=== PATIENT | male | born 1990 | race Caucasian/White ===

== ENCOUNTER 2023-09-29 23:51 | Inpatient (IN) | payer OTHER, SELFPAY ==
[2023-09-29 18:16] VITALS: BP 146/100
[2023-09-29 18:32] VITALS: BP 130/94
--- NOTE | 2023-09-29 18:42 | ED.GENMED ---
History of Present Illness
<Elizabeth Hardy CASHIER AND WAITER/WAITRESS - Last Filed: 09/30/23 03:23>
General
Chief Complaint: Alcohol Problem
Source: patient and family (Uncle at bedside)
Exam Limitations: none
Time Seen by Provider: 09/29/23 18:40
Nursing documentation reviewed up to this point in time: agreed with
Travel History
Have you had any contact with someone who has COVID-19?: No
Do you have any symptoms of coronavirus? Fever > 100 degrees, chills, cough, shortness of breath, sore throat, loss of taste or smell, muscle aches, or headache?: No
History of Present Illness
History of Present Illness:
33 yo male with h/o alcohol use disorder, has been in rehab several times in the past presents stating for past 2 weeks has been drinking daily 'whatever I can get my hands on,' 'any clear booze' usually Vodka, drank a 5th of Vodka throughout the
day today. Finished it at 4 p.m. Uncle at bedside. Pt states Uncle was asked to stay at house with pt as his parents are away and pt states 'I am manipulative and untrustworthy so they asked him to stay with me.'
Pt states yesterday he vomited coffee ground material 3 times and last time there was blood in it
Earlier today he vomited and 'it was red.'
He states he's had black stools 4-5 times in past 2 days.
Denies CP, SOB, feels 'burning pain' in stomach.
Pt states he felt tremors this a.m. but drinking the Vodka throughout the day helped. He denies symptoms of DT's now.
Past History
<Elizabeth Hardy CASHIER AND WAITER/WAITRESS - Last Filed: 09/30/23 03:23>
Past History
ED Past Medical History: Other (Anxiety, depression alcohol use disorder, )
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
Social History
Tobacco: Non-smoker
Alcohol: Chronic alcoholic
Drug: None
Personal: Single
Living: with family
Employment: Employed
<Geo Simon DO - Last Filed: 09/29/23 23:00>
Past History
Patient has exhibited threatening behavior?: Yes
Date of threatening behavior? (updated with each occurrence): 09/29/23
Review of Systems
<Elizabeth Hardy, CASHIER AND WAITER/WAITRESS - Last Filed: 09/30/23 03:23>
Review of Systems
Allergies reviewed?: Yes
All Other Systems: ROS reviewed and negative except as documented in HPI and ROS
Constitutional: Denies fever or fatigue
EENT: Denies sore throat
Respiratory: Denies trouble breathing
Cardiac: Denies chest pain
ABD/GI: Reports nausea, vomiting and black stools; Denies abdominal pain
: Denies dysuria, frequency or difficulty voiding
Musculoskeletal: Reports no symptoms
Skin: Reports no symptoms
Neurological: Reports no symptoms
Phy Exam
<Elizabeth Hardy, CASHIER AND WAITER/WAITRESS - Last Filed: 09/30/23 03:23>
Physical Exam
Physical Exam:
GENERAL: No acute distress. A&Ox3.
CONSTITUTIONAL: Afebrile.
EYES: PERRL, conjunctivae normal
Neck: Supple
ENMT: moist mucus membranes, Pharynx nl
RESPIRATORY: Regular respirations, nonlabored, lungs clear.
CARDIOVASCULAR: Regular rate and rhythm, no murmurs, no rubs.
GI: Soft, nontender, normal BS
MUSCULOSKELETAL: Moves with ease. Well perfused.
SKIN: Warm, dry, pink
PSYCH: Normal mood and affect. Well kept, interactive and appropriate
NEUROLOGIC: Awake, alert and oriented. No focal neurological deficits, no tremors
Scores
<Elizabeth Hardy, CASHIER AND WAITER/WAITRESS - Last Filed: 09/30/23 03:23>
Withdrawal Assessment of Alcohol
Withdrawal Assessment Completed?: Yes
Nausea and Vomiting: Mild nausea with no vomiting
Tactile Disturbances: None
Tremor: No tremor
Auditory Disturbances: Not present
Paroxysmal Sweats: No sweat visible
Visual Disturbances: Not present
Anxiety: Mild anxiety
Headache, Fullness in Head: Not present
Agitation: Normal activity
Orientation and clouding of sensorium: Oriented and can do serial additions
Total CIWA Score: 2
Alcohol Withdrawal Medication Recommendation: Equal to MSAS Score 0-4. Monitor & re-assess q2hrs, NO MEDICATION NEEDED
Course
<Elizabeth Hardy, CASHIER AND WAITER/WAITRESS - Last Filed: 09/30/23 03:23>
Orders/Labs/Results
Orders:
Orders
09/29/23 18:44
Alcohol Urgent
Complete Blood Count/With Diff Urgent
Comprehensive Metabolic Panel Urgent
Magnesium Urgent
Phosphorus Urgent
Prothrombin Time Urgent
09/29/23 19:00
0.9% Sodium Chloride 1000 ml [Nss] 1,000 ml Mvi, Adult [Multivitamin] 10 ml Thiamine Injection 100 mg IV 1,000 mls/hr
09/29/23 19:16
Pantoprazole [Protonix IV] 80 mg IV NOW STA
09/29/23 20:14
Lorazepam [Ativan] 1 mg IV NOW STA
09/29/23 21:03
Nicotine [Nicoderm Transdermal] 14 mg TRANSDERM NOW STA
09/29/23 21:06
Ondansetron Injectable [Zofran] 4 mg IV NOW STA
09/29/23 23:06
Fentanyl, Urine Urgent
Urine Drug Abuse Screen Urgent
Date Specimen was Collected: 09/29/23
Time Specimen was Collected: 18:42
09/29/23 23:25
Admit/Transfer Patient As Directed
Co-Sign Provider:
Level of Care: Inpatient admission
Assign to:: Medical/Surgical
Physician / Group: tequila
Diagnosis: rectal bleed
Reason for Hospitalization: rectal bleed
Expected length of stay greater than two midnights?: Yes
ELOS- Estimated Length of Stay in days: 3
I certify the patient meets the requirements for IP care: Yes
09/29/23 23:26
Code Status As Directed
Resuscitation Status: Full Code
09/30/23 00:29
0.9% Sodium Chloride 1000 ml [Nss] 1,000 ml IV 80 mls/hr
0.9% Sodium Chloride [Nss (Preservative Free)] See Protocol IV PRN PRN
FOLic ACID [Folvite] 1 mg 0.9% Sodium Chloride 50 ml [Nss] 50 ml IV DAILYPRN
Lorazepam [Ativan] 1 mg IV Q1HPRN PRN
Lorazepam [Ativan] 1 mg PO Q2HPRN PRN
Lorazepam [Ativan] 2 mg IV Q1HPRN PRN
09/30/23 00:29
Case Management Consult Once
Case Management Consult: Other
Comment: Substance abuse counseling
Consult Notification Routine
Specialty to Notify: Gastroenterology
DIETARY CONSULT Routine
Reason for Consult: Nutrition support, possible refeeding guidelines
GASTROINTESTINAL CONSULT Routine
Consulting Provider: Michelle Sutton
Was physician already notified: No
Reason for consult: rectal bleed
Urinalysis Routine
Urine Drug Abuse Screen Routine
Activity As Directed
Activity Level: As Tolerated
INT (Intravenous Needle Therapy) As Directed
Comment: Place 2 IV catheters of the largest bore possible until stable
MSAS SCORE As Directed
MSAS Score 0-4: Repeat MSAS every 2 hours until 0-4 for three consecutive assessments, then every 4 hours x 48
hours.
MSAS Score 5-7: For MILD withdrawl symptoms. Repeat MSAS and RASS every 2 hours
MSAS Score 8-11: For MODERATE withdrawal symptoms. Repeat MSAS and RASS every 1 hour. Consider ICU or IMU
level of care.
MSAS Score > 11: For SEVERE withdrawal symptoms. Repeat MSAS and RASS every 1 hour. Notify provider, consider
ICU level of care.
MSAS Additional Instructions: If no improvement or no decrease in score from severe to moderate within 12
hours, consult psychiatry
MSAS Notify Provider: Notify provider if patient requires more than 10 mg of Lorazepam in eight hour period.
Orthostatic Vital Signs As Directed
Orthostatic VS Frequency: Now
Comment: then every four hours for twenty-four hours
Venous Foot Pumps As Directed
Location: Bilateral feet
Vital Signs As Directed
Frequency: Per unit guidelines
DX Deep Vein Thrombosis Video Routine
09/30/23 00:58
Alcohol Urgent
B-Hydroxybutyrate Urgent
GGTP Urgent
Magnesium Urgent
PTT Urgent
09/30/23 Breakfast
NPO
Allow oral meds: Yes
Allow clear liquids: No
Basic Metabolic Panel IN AM
Complete Blood Count/No Diff IN AM
09/30/23 08:00
Buspirone [BuSPAR] 7.5 mg PO DAILY
Escitalopram Oxalate [Lexapro] 10 mg PO DAILY
FOLic ACID [Folvite] 1 mg PO DAILY
Nicotine [Nicoderm Transdermal] 14 mg TRANSDERM DAILY
Thiamine Injection 200 mg IV Q12
10/01/23 06:00
Basic Metabolic Panel IN AM
Complete Blood Count/No Diff IN AM
10/02/23 06:00
Basic Metabolic Panel IN AM
Complete Blood Count/No Diff IN AM
10/03/23 06:00
Basic Metabolic Panel IN AM
Complete Blood Count/No Diff IN AM
10/03/23 08:00
Thiamine HCl [Vitamin B1] 100 mg PO BID
10/04/23 06:00
Basic Metabolic Panel IN AM
Complete Blood Count/No Diff IN AM
Abnormal Lab Results
09/29/23 09/29/23
18:44 23:06
WBC 12.8 H 10^3/uL
(4.8-10.8)
Absolute Neuts (auto) 9.8 H 10^3/uL
(1.4-6.5)
Absolute Monos (auto) 1.0 H 10^3/uL
(0.1-0.6)
Neutrophils % 76.4 H %
(42.2-75.2)
Lymphocytes % 14.7 L %
(20.5-51.1)
Chloride 96 L mmol/L
(98-107)
BUN 24 H mg/dl
(9-20)
Glucose 115 H mg/dl
(70-99)
Calcium 10.3 H mg/dl
(8.4-10.2)
AST 63 H U/L
(17-59)
Total Protein 8.5 H g/dl
(6.3-8.2)
Albumin 5.3 H g/dl
(3.5-5.0)
U Benzodiazepines Scrn Positive H
(Negative)
U Marijuana (THC) Screen Positive H
(Negative)
09/29/23 18:44
09/29/23 18:44
Vital Signs
Initial and Last Documented VS:
Initial Vital Signs
Temp Pulse Resp BP Pulse Ox
99.5 F 138 20 146/100 94
09/29/23 18:16 09/29/23 18:16 09/29/23 18:16 09/29/23 18:16 09/29/23 18:16
Last Documented Vital Signs
Temp Pulse Resp BP Pulse Ox
98.8 F 103 17 130/82 98
09/30/23 00:47 09/30/23 00:47 09/30/23 00:47 09/30/23 00:47 09/30/23 00:47
Substation Operator Apprentice consulted with Physician
Substation Operator Apprentice consulted with physician?: Yes
Name of Physician Consulted: [facility]
<Geo Simon, DO - Last Filed: 09/29/23 23:00>
Orders/Labs/Results
Orders:
Orders
09/29/23 18:44
Alcohol Urgent
Complete Blood Count/With Diff Urgent
Comprehensive Metabolic Panel Urgent
Magnesium Urgent
Phosphorus Urgent
Prothrombin Time Urgent
09/29/23 19:00
0.9% Sodium Chloride 1000 ml [Nss] 1,000 ml Mvi, Adult [Multivitamin] 10 ml Thiamine Injection 100 mg IV 1,000 mls/hr
09/29/23 19:16
Pantoprazole [Protonix IV] 80 mg IV NOW STA
09/29/23 20:14
Lorazepam [Ativan] 1 mg IV NOW STA
09/29/23 21:03
Nicotine [Nicoderm Transdermal] 14 mg TRANSDERM NOW STA
09/29/23 21:06
Ondansetron Injectable [Zofran] 4 mg IV NOW STA
09/29/23 23:06
Fentanyl, Urine Urgent
Urine Drug Abuse Screen Urgent
Date Specimen was Collected: 09/29/23
Time Specimen was Collected: 18:42
09/29/23 23:25
Admit/Transfer Patient As Directed
Co-Sign Provider:
Level of Care: Inpatient admission
Assign to:: Medical/Surgical
Physician / Group: tequila
Diagnosis: rectal bleed
Reason for Hospitalization: rectal bleed
Expected length of stay greater than two midnights?: Yes
ELOS- Estimated Length of Stay in days: 3
I certify the patient meets the requirements for IP care: Yes
03/22/24 23:26
Code Status As Directed
Resuscitation Status: Full Code
09/30/23 00:29
0.9% Sodium Chloride 1000 ml [Nss] 1,000 ml IV 80 mls/hr
0.9% Sodium Chloride [Nss (Preservative Free)] See Protocol IV PRN PRN
FOLic ACID [Folvite] 1 mg 0.9% Sodium Chloride 50 ml [Nss] 50 ml IV DAILYPRN
Lorazepam [Ativan] 1 mg IV Q1HPRN PRN
Lorazepam [Ativan] 1 mg PO Q2HPRN PRN
Lorazepam [Ativan] 2 mg IV Q1HPRN PRN
09/30/23 00:29
Case Management Consult Once
Case Management Consult: Other
Comment: Substance abuse counseling
Consult Notification Routine
Specialty to Notify: Gastroenterology
DIETARY CONSULT Routine
Reason for Consult: Nutrition support, possible refeeding guidelines
GASTROINTESTINAL CONSULT Routine
Consulting Provider: Michelle Sutton
Was physician already notified: No
Reason for consult: rectal bleed
Urinalysis Routine
Urine Drug Abuse Screen Routine
Activity As Directed
Activity Level: As Tolerated
INT (Intravenous Needle Therapy) As Directed
Comment: Place 2 IV catheters of the largest bore possible until stable
MSAS SCORE As Directed
MSAS Score 0-4: Repeat MSAS every 2 hours until 0-4 for three consecutive assessments, then every 4 hours x 48
hours.
MSAS Score 5-7: For MILD withdrawl symptoms. Repeat MSAS and RASS every 2 hours
MSAS Score 8-11: For MODERATE withdrawal symptoms. Repeat MSAS and RASS every 1 hour. Consider ICU or IMU
level of care.
MSAS Score > 11: For SEVERE withdrawal symptoms. Repeat MSAS and RASS every 1 hour. Notify provider, consider
ICU level of care.
MSAS Additional Instructions: If no improvement or no decrease in score from severe to moderate within 12
hours, consult psychiatry
MSAS Notify Provider: Notify provider if patient requires more than 10 mg of Lorazepam in eight hour period.
Orthostatic Vital Signs As Directed
Orthostatic VS Frequency: Now
Comment: then every four hours for twenty-four hours
Venous Foot Pumps As Directed
Location: Bilateral feet
Vital Signs As Directed
Frequency: Per unit guidelines
DX Deep Vein Thrombosis Video Routine
09/30/23 00:58
Alcohol Urgent
B-Hydroxybutyrate Urgent
GGTP Urgent
Magnesium Urgent
PTT Urgent
09/30/23 Breakfast
NPO
Allow oral meds: Yes
Allow clear liquids: No
Basic Metabolic Panel IN AM
Complete Blood Count/No Diff IN AM
09/30/23 08:00
Buspirone [BuSPAR] 7.5 mg PO DAILY
Escitalopram Oxalate [Lexapro] 10 mg PO DAILY
FOLic ACID [Folvite] 1 mg PO DAILY
Nicotine [Nicoderm Transdermal] 14 mg TRANSDERM DAILY
Thiamine Injection 200 mg IV Q12
10/01/23 06:00
Basic Metabolic Panel IN AM
Complete Blood Count/No Diff IN AM
10/02/23 06:00
Basic Metabolic Panel IN AM
Complete Blood Count/No Diff IN AM
10/03/23 06:00
Basic Metabolic Panel IN AM
Complete Blood Count/No Diff IN AM
10/03/23 08:00
Thiamine HCl [Vitamin B1] 100 mg PO BID
10/04/23 06:00
Basic Metabolic Panel IN AM
Complete Blood Count/No Diff IN AM
Abnormal Lab Results
09/29/23 09/29/23
18:44 23:06
WBC 12.8 H 10^3/uL
(4.8-10.8)
Absolute Neuts (auto) 9.8 H 10^3/uL
(1.4-6.5)
Absolute Monos (auto) 1.0 H 10^3/uL
(0.1-0.6)
Neutrophils % 76.4 H %
(42.2-75.2)
Lymphocytes % 14.7 L %
(20.5-51.1)
Chloride 96 L mmol/L
(98-107)
BUN 24 H mg/dl
(9-20)
Glucose 115 H mg/dl
(70-99)
Calcium 10.3 H mg/dl
(8.4-10.2)
AST 63 H U/L
(17-59)
Total Protein 8.5 H g/dl
(6.3-8.2)
Albumin 5.3 H g/dl
(3.5-5.0)
U Benzodiazepines Scrn Positive H
(Negative)
U Marijuana (THC) Screen Positive H
(Negative)
09/29/23 18:44
09/29/23 18:44
Vital Signs
Initial and Last Documented VS:
Initial Vital Signs
Temp Pulse Resp BP Pulse Ox
99.5 F 138 20 146/100 94
09/29/23 18:16 09/29/23 18:16 09/29/23 18:16 09/29/23 18:16 09/29/23 18:16
Last Documented Vital Signs
Temp Pulse Resp BP Pulse Ox
98.8 F 103 17 130/82 98
09/30/23 00:47 09/30/23 00:47 09/30/23 00:47 09/30/23 00:47 09/30/23 00:47
Zamzamlt;Elizabeth Hardy, CASHIER AND WAITER/WAITRESS - Last Filed: 09/30/23 03:23>
MDM/Problems Addressed
MDM/Problems Addressed:
33 yo male with h/o alcohol use disorder, has been in rehab several times in the past presents stating for past 2 weeks has been drinking daily 'whatever I can get my hands on,' 'any clear booze' usually Vodka, drank a 5th of Vodka throughout the
day today. Finished it at 4 p.m. Uncle at bedside. Pt states Uncle was asked to stay at house with pt as his parents are away and pt states 'I am manipulative and untrustworthy so they asked him to stay with me.'
Pt states yesterday he vomited coffee ground material 3 times and last time there was blood in it
Earlier today he vomited and 'it was red.'
He states he's had black stools 4-5 times in past 2 days.
Denies CP, SOB, feels 'burning pain' in stomach.
Pt states he felt tremors this a.m. but drinking the Vodka throughout the day helped. He denies symptoms of DT's now.
Pt is alert, appears well physically, no DT symptoms.
09/29/2023 1918 PM
CBC: WBC 12.8 otherwise no clinically significant abnormality
CMP with no clinically significant abnormality. BUN 24, IV fluids running for mild dehydration
09/29/20232027 PM
Patient had an episode where he became verbally abusive to staff, cursing at everyone who entered the room, accusing staff of purposefully abusing him.
NOHEMY Ramos asked pt's uncle to step out, he spoke with him then went back to pt room and pt was verbally abusive to him, pt pulled out his IV cares Richard entered the room
Then became tearful and apologetic, Ativan given.
Richard from NOHEMY back in to speak with him.
09/29/20234 PM
Patient remains calm, NOHEMY Richard at bedside
09/29/20239 PM
No vomiting or BM since arrival.
SAVANNARES unable to find placement
Rectal exam: small amount stool heme flash positive
Plan: Admit: GI bleed, at risk for alcohol withdrawal
Chronic conditions affecting care: Other (alcohol use disorder)
Zamzamlt;Elizabeth Hardy, CASHIER AND WAITER/WAITRESS - Last Filed: 03/23/24 03:23>
*Critical Care Note
Total Time (30-74mins, 75-104mins- exclusive of procedures): Not Applicable
<Elizabeth Hardy CASHIER AND WAITER/WAITRESS - Last Filed: 09/30/23 03:23>
Patient Management
Social determinants of health affecting care: Strong social support
ED Attending Note
<Elizabeth Hardy CASHIER AND WAITER/WAITRESS - Last Filed: 09/30/23 03:23>
-
Portions of this chart may have been created with voice recognition software.� Occasional wrong word or��sound alike� substitutions may have occurred due to the inherent limitations of voice recognition software.
<Geo Simon DO - Last Filed: 09/29/23 23:00>
ED Attending Note
Patient seen and examined by attending physician: Yes
ED Attending Note:
I have reviewed and agree with history and treatment plan by Marjorie hardy. Patient is a 33-year-old male with alcohol intoxication and dependency, coffee-ground emesis concerning for upper GI bleed. Guaiac positive stool. Admit to hospitalist.
Patient was belligerent and yelling at nurses.
Discharge Plan
Departure
Patient Disposition: Admit
Date of Disposition: 09/29/23
Time of Disposition: 22:59
Admit to: Med/Surg
Presentation/result/management discussed w/ accepting MD/DO: Hospitalist
Condition: Fair
Discharge Problem:
Alcohol use disorder, Acute GI bleeding
Interventions
Interventions:
*Risk Screen - Suicide Last Done: 09/30/23 00:33
*General Assessment Last Done: 09/30/23 00:19
*Neglect/Abuse Screening Last Done: 09/30/23 00:19
ED- Fall Risk Assessment Last Done: 09/30/23 00:19
*ED COVID-19 Vaccine History Last Done: 09/30/23 00:33
*Nursing Disposition Last Done: 09/30/23 00:19
ED- Neurological Assessment Last Done: 09/29/23 18:58
ED-Psychological Assessment Last Done: 09/29/23 18:58
Discharge Date and Time
Discharge Date/Time: 09/30/23 00:19
[2023-09-29 18:56] LABS: % Basophils 0.5 % (0-2); % Eosinophils 0.2 % (0-6); % Immature Granulocytes 0.3 % (0-0.5); % Lymphocytes 14.7 % (20.5-51.1); % Monocytes 7.9 % (1.7-9.3); % Neutrophils 76.4 % (42.2-75.2); Absolute Basophils 0.1 10^3/uL (0-0.2); Absolute Lymphocytes 1.9 10^3/uL (1.2-3.4); Absolute Neutrophils 9.8 10^3/uL (1.4-6.5); Hematocrit 45.2 % (39.0-52.0); Hemoglobin 16.1 g/dL (13.0-18.0); Mean Corp Hgb Conc. 35.6 g/dL (33.0-37.0); Mean Corpuscular Hgb 30.4 pg (27.0-31.0); Mean Corpuscular Volume 85.3 fL (80.0-94.0); Mean Platelet Volume 10.2 fL (7.4-10.4); Nucleated Red Blood Cells % 0 % (-); Platelet Count 354 10^3/uL (130-400); Red Cell Dist. Width 13.4 % (11.5-14.5); White Blood Cell Count 12.8 10^3/uL (4.8-10.8)
[2023-09-29] MEDS: MULTIVITAMIN 1011 ML IV (19:17)
[2023-09-29] MEDS: MULTIVITAMIN 1011 MG IV (19:17)
[2023-09-29 19:18] VITALS: BP 127/86
[2023-09-29 19:19] LABS: ALT (SGPT) 33 U/L (0-50); AST (SGOT) 63 U/L (17-59); Albumin 5.3 g/dl (3.5-5.0); Alkaline Phosphatase 63 U/L (38-126); Blood Urea Nitrogen 24 mg/dl (9-20); Calcium 10.3 mg/dl (8.4-10.2); Carbon Dioxide 26 mmol/L (22-30); Chloride 96 mmol/L (98-107); Glucose 115 mg/dl (70-99); Phosphorus 4.3 mg/dl (2.5-4.5); Sodium 139 mmol/L (135-145); Total Bilirubin 0.7 mg/dl (0.2-1.3); Total Protein 8.5 g/dl (6.3-8.2); eGFR > 60.00
[2023-09-29] MEDS: PROTONIX IV 80 MG IV (19:25)
[2023-09-29 19:26] LABS: INR 0.85; PT 11.4 Sec (11.4-14.6)
[2023-09-29 19:32] LABS: Alcohol 296 mg/dl
--- NOTE | 2023-09-29 19:56 | EDRN ---
patient cursing and abusive to staff- threatening to call the police
[2023-09-29 20:01] VITALS: BP 139/97
--- NOTE | 2023-09-29 20:16 | EDRN ---
patient apologized for his behavior- stating 'he is just upset with himself' and that he took it out on staff who didn't deserve it. He states in the past he has had 4 years sober. He was encouraged to stay and talk about going inpatient so that
he can start over. Patient is willing to stay- family at bedside.
[2023-09-29] MEDS: ATIVAN 1 MG IV (20:22)
[2023-09-29] MEDS: ZOFRAN 4 MG IV (21:10)
[2023-09-29] MEDS: NICODERM TRANSDERMAL 14 MG TRANSDERM (21:10)
--- NOTE | 2023-09-29 23:01 | HPS.HSE ---
Addendum entered and electronically signed by Isis Shukla MD 09/29/23 23:32:
Patient seen and examined independently with GEOGRAPHIC ANALYST.�33-year-old male past medical history of alcohol use disorder, anxiety/depression, prior hematemesis, aortic arch surgery in his youth presenting with coffee-ground/bloody emesis and black stool
concerning for Shelley-Gautam tear.� Not in significant alcohol withdrawal at this time.� N.p.o., IV fluids, IV Protonix 40 twice daily, GI consulted.� Alcohol withdrawal protocol.
Original Note:
Family Physician
-
Family Physician: NOT KNOW UNKNOWN - PT DOES
Chief Complaint
-
rectal bleed
black stool
History of Present Illness
33 yo male with h/o alcohol use disorder, anxiety, depression presented to us with rectal bleed, coffee ground emesis since yesterday. patient stated multiple episodes of coffee ground emesis and today he noted bright blood per rectum. stated
abdominal tenderness.stated burning in the chest with vomit. patient is alcohol, who was sober for 100days, started drinking for last two weeks. he drank 1/2 pint vodka today. last drink was at 4pm. Denies CP, SOB. denied MTZ,dizzy or syncopal
episode. denied dysuria or hematuria.
admitting for further management.
Medical History
Past Medical History
Past Medical History: Reports Other
Additional Past Medical History:
anxiety
depression
heart murmur
Past Surgical History: Reports Other
Additional Past Surgical History:
wisdom teeth extraction
double aortic arch repair
ACL,MCL meniscus repair
hernia repair
Social History
Tobacco: Smoker (MJ)
Alcohol: Daily
Drug: None
Personal: Single
Living: With Family
Family History
Family History: Not pertinent
Allergies / Home Medications
Allergies reflects when Allergies were last updated in [facility].
Home Medications with original date entered in [facility]
Allergy/Medication List:
Allergies
Allergy/AdvReac Type Severity Reaction Status Date / Time
No Known Allergies Allergy Unverified 03/18/22 08:40
Home Medications
escitalopram oxalate 10 mg tablet (Lexapro) 10 mg PO DAILY 03/15/22
buspirone 7.5 mg tablet 7.5 mg PO DAILY 09/29/23
Review of Systems
-
Constitutional: Reports No Symptoms
EENT: Reports No Symptoms
Respiratory: Reports No Symptoms
Cardiac: Reports No Symptoms
Abdomen/GI: Reports Abdominal Pain, Bloody Stools and Black Stools
: Reports No Symptoms
Musculoskeletal: Reports No Symptoms
Skin: Reports No Symptoms
Neurological: Reports No Symptoms
Endocrine: Reports No Symptoms
Hematologic/Lymphatic: Reports No Symptoms
Psych: Reports No Symptoms
Physical Exam
Vital Signs
Vital Signs
Temp Pulse Resp BP Pulse Ox
98.7 F 119 20 139/97 94
09/29/23 19:20 09/29/23 22:30 09/29/23 22:30 09/29/23 20:01 09/29/23 18:16
Physical Exam
General: Well Developed, Well Nourished and No Apparent Distress
HEENT: NormoCephalic, Moist mucous membranes and Atraumatic
Respiratory: Clear
Cardiac: S1/S2 and Regular Rhythm; No Murmur or Rub
GI: Soft, Non Distended, Normal Bowel Sounds and Tender; No Organomegaly
Rectal: Deferred by Provider
Musculoskeletal: No Clubbing, No Cyanosis and No Edema
Skin: No Rash
Neuro: AO x 3 and Nonfocal/grossly intact
Psych: Calm
Laboratory Results
-
09/29/23 18:44
09/29/23 18:44
Laboratory Results
PT 11.4 Sec (11.4-14.6) 09/29/23 18:44
INR 0.85 09/29/23 18:44
Total Bilirubin 0.7 mg/dl (0.2-1.3) 09/29/23 18:44
AST 63 U/L (17-59) H 09/29/23 18:44
ALT 33 U/L (0-50) 09/29/23 18:44
Alkaline Phosphatase 63 U/L (38-126) 09/29/23 18:44
Data Reviewed
-
Lab Data: Labs Reviewed by me
Impression/Plan
-
#rectal bleed/hematemesis likely Shelley Gautam tear
-hgb stable
-will keep patient NPO after MN
-iv Protonix iv
-fluids for hydration
-GI consulted
#alcohol use disorder
-alcohol protocol
-monitor MSAS score
#leukocytosis likely stress reaction
-wbc 12.8
-ctm
#anxiety/depression
-buspirone and citalopram continued
#DVT Prophylaxis
-scd
#CODE status
-full code
[2023-09-29 23:07] VITALS: BP 127/77
[2023-09-29 23:54] LABS: Amphetamines Negative (Negative); Barbiturates Negative (Negative); Benzodiazepines Positive (Negative); Buprenorphine Negative (Negative); Cocaine Negative (Negative); Marijuana Positive (Negative); Methadone Negative (Negative); Methamphetamines Negative (Negative); Opiates Negative (Negative); Phencyclidine Negative (Negative); Tricyclic Antidepressants Negative (Negative)
[2023-09-30] VITALS (8 sets, daily range): BP systolic 028–148; BP diastolic 70–88; PULSE 92–141; BMI 24.8
[2023-09-30 00:10] LABS: Fentanyl, Urine Negative (Negative)
--- NOTE | 2023-09-30 00:45 | PTCARENOTE ---
Received patient from ED. Patient AAOx3, Lungs decreased, heart rate regular but tachy in the low 100s, no edema, positive pulses. Patient said he has had 3 or more loose liquid watery bloody stools in the last 24hrs; therefore, placed on Enhanced
precautions. Skin flushed. MSAS 3. VSS. Patient oriented to the unit. Call díaz in reach. Bedside commode placed at bedside along with urinal. Patient verbalized an understanding to ring for transfers as needed. Patient aware of need to reassess
frequently for DTs.
[2023-09-30] MEDS: NSS 1000 IV ×2 (01:07→15:23)
[2023-09-30 01:18] LABS: Alcohol 89 mg/dl; GGTP 15 U/L (15-73); Magnesium 1.6 mg/dl (1.6-2.3)
[2023-09-30 01:21] LABS: APTT 23.5 Sec (23.4-35.0)
[2023-09-30 01:24] LABS: B-Hydroxybutyrate 0.19 mmol/L (0.02-0.27)
[2023-09-30] MEDS: ATIVAN 1 MG PO ×3 (04:11→20:27)
[2023-09-30 07:23] LABS: Urine Albumin Negative (Neg - Trace); Urine Bilirubin Negative (Negative); Urine Character Clear (Clear); Urine Color Yellow; Urine Glucose Negative (Negative); Urine Ketone 2+ (Negative); Urine Leukocyte Negative (Negative); Urine Nitrite Negative (Negative); Urine Occult Blood Negative (Negative); Urine Specific Gravity 1.015 (<1.030); Urine Urobilinogen Negative (Neg - 1+)
[2023-09-30] MEDS: LEXAPRO 10 MG PO (08:04)
[2023-09-30] MEDS: BUSPAR 7.5 MG PO (08:04)
[2023-09-30] MEDS: FOLVITE 1 MG PO (08:04)
[2023-09-30] MEDS: PROTONIX IV 40 MG IV ×2 (08:05→20:09)
[2023-09-30] MEDS: NSS (PRESERVATIVE FREE) 10 ML IV ×2 (08:06→20:08)
[2023-09-30] MEDS: THIAMINE INJECTION 200 MG IV ×2 (08:06→20:09)
[2023-09-30 08:33] LABS: Hematocrit 35.3 % (39.0-52.0); Mean Corp Hgb Conc. 34.8 g/dL (33.0-37.0); Mean Corpuscular Hgb 30.3 pg (27.0-31.0); Mean Corpuscular Volume 86.9 fL (80.0-94.0); Mean Platelet Volume 10.7 fL (7.4-10.4); Platelet Count 241 10^3/uL (130-400); Red Blood Cell Count 4.06 10^6/uL (4.70-6.10); Red Cell Dist. Width 13.4 % (11.5-14.5); White Blood Cell Count 8.5 10^3/uL (4.8-10.8)
[2023-09-30 08:40] LABS: Hemoglobin 12.3 g/dL (13.0-18.0)
--- NOTE | 2023-09-30 09:05 | W.PN.HOSP.TC ---
Today's Communication/Plan
-
add phenobarb mod dose for alc withdrawal
continue prn ativan
await GI eval
Assessment / Plan
Assessment / Plan
1. GI bleed - hematochezia and Coffe brown emesis
Acute blood loss anemia
- h/o of alcohol use but denies cirrhosis/varices/PUD to me. Did state of having prior hematemesis to admitting attending.
- no further reported episodes after on floor
- Hbg down to 12 today from 16 yesterday. BUN 24 yesterday, repeat pending today
- Maintain NPO/IVF and on IV PPI
- GI eval pending
2. Alcohol use disorder
Alcohol withdrawal
- patient was sober for 100 day and started drinking again
- last drink on 09/28 4 PM
- Blood alcohol 296 at admit and 89 today
- Patient reported previous h/o of sev withdrawal with seizures in past
- MSAS score reviewend and highest 6, required 2x ativan dose
- Start phenobarb protocol fomr ~ 65mg dose.
- On thiamine/folate
3. Leukocytosis w/o fever
- possible reactive in nature
4. Anxiety/depression
-buspirone and citalopram continued
5. Transaminitis
- minimal AST elevation, from alc use
6. Hypercalcemia
- at upper normal cutoff from dehydration likely
- f/u labs today post IVF
DVT Prophylaxis -scd
CODE status -full code
Anticipated Discharge: 24 - 48 hours
Subjective/Interval History
-
Date of Service: September 30, 2023
patient feeling anxious and tremulous
required 2 doses of ativan last night
no further hematemesis or hemtochezia
Objective Data
-
Labs:
Laboratory Results
09/30/23 09/30/23
00:58 07:46
WBC 8.5
Hgb 12.3 L D
Hct 35.3 L
Plt Count 241 D
APTT 23.5
Sodium Pending
Potassium Pending
Chloride Pending
Carbon Dioxide Pending
BUN Pending
Creatinine Pending
Glucose Pending
Calcium Pending
Vital Signs:
Vital Signs
Temp Pulse Resp BP Pulse Ox
97.6 F 103 18 117/70 100
09/30/23 07:00 09/30/23 07:00 09/30/23 07:00 09/30/23 07:00 09/30/23 07:00
I&O
09/29/23 09/30/23 10/01/23
06:59 06:59 06:59
Intake Total 520 / 520
Output Total 250 / 250
Balance 270 / 270
Review of Systems
-
Respiratory: Reports No Symptoms
Cardiac: Reports No Symptoms
Abdomen/GI: Reports Abdominal Pain and Nausea; Denies Vomiting
Physical Exam
-
General: Comfortable
HEENT: Negative Oxygen
Respiratory: Clear to Auscultation
GI: Soft, Nondistended, Normal Bowel Sounds and Tender (Epigastric)
Neuro: Awake, Alert, Oriented and No Motor Deficits
Psych: Anxious (Minimal)
[2023-09-30 09:19] LABS: Blood Urea Nitrogen 16 mg/dl (9-20); Calcium 8.5 mg/dl (8.4-10.2); Carbon Dioxide 31 mmol/L (22-30); Chloride 98 mmol/L (98-107); Estimated Creatinine Clearance > 125 ml/min; Glucose 87 mg/dl (70-99); Potassium 3.7 mmol/L (3.5-5.1); Sodium 136 mmol/L (135-145); eGFR > 60.00
[2023-09-30] MEDS: LUMINAL 64.7999999999999972 MG PO ×3 (10:13→22:01)
[2023-09-30 12:03] LABS: Amphetamines Negative (Negative); Barbiturates Negative (Negative); Benzodiazepines Positive (Negative); Buprenorphine Negative (Negative); Cocaine Negative (Negative); Marijuana Positive (Negative); Methadone Negative (Negative); Methamphetamines Negative (Negative); Opiates Negative (Negative); Phencyclidine Negative (Negative); Tricyclic Antidepressants Negative (Negative)
--- NOTE | 2023-09-30 12:29 | CON.GI ---
Consultation
-
Date/Time Consultation Requested: 09/29/2023
Date/Time Consultation Performed: 09/30/2023
Requesting Provider: hospitalist
Performing Provider: [place] MORSE
Reason for Consultation: Hematemesis/ coffee-ground emesis/dark stool
Medical History
Chief Complaint / HPI
Chief Complaint: Coffee-ground emesis/hematemesis/dark stool
History of Present Illness:
33-year-old male with history of alcohol abuse who was sober for 3 months started drinking back 2 weeks ago complaining of nausea/vomiting/coffee-ground emesis for 3 days. He noticed some blood with vomiting prior to admission. He also reported
dark stool for 2 to 3 days. Also complaining of some abdominal discomfort with chest burning sensation. He was drinking 1 bottle of vodka every day. Last drink prior to admission
Past Medical History
Past Medical History: Other (anxiety depression heart murmur)
Past Surgical History: Other (wisdom teeth extraction double aortic arch repair ACL,MCL meniscus repair hernia repair)
Social History
Tobacco: Smoker
Alcohol: Daily
Personal: Single
Living: With Family
Allergies / Home Medications
Allergy/AdvReac Type Severity Reaction Status Date / Time
No Known Allergies Allergy Unverified 03/18/22 08:40
Medication Instructions Recorded
escitalopram oxalate 10 mg tablet 10 mg PO DAILY Mental 03/15/22
(Lexapro) Health/Anxiety
buspirone 7.5 mg tablet 7.5 mg PO DAILY Mental 09/29/23
Health/Anxiety
Review of Systems
-
All other systems: A 12 pt ROS was Negative except as stated above in HPI
Vital Signs
Temp Pulse Resp BP Pulse Ox
97.6 F 103 18 117/70 100
09/30/23 07:00 09/30/23 07:00 09/30/23 07:00 09/30/23 07:00 09/30/23 12:05
Physical Exam
Exam
General: Well Developed and Comfortable
Respiratory: Clear
Cardiac: S1/S2
GI: Soft, Non Tender, Non Distended and Normal Bowel Sounds
Neuro: AO x 3
Results
WBC 8.5 10^3/uL (4.8-10.8) 09/30/23 07:46
Hgb 12.3 g/dL (13.0-18.0) L D 09/30/23 07:46
Hct 35.3 % (39.0-52.0) L 09/30/23 07:46
MCV 86.9 fL (80.0-94.0) 09/30/23 07:46
Plt Count 241 10^3/uL (130-400) D 09/30/23 07:46
Absolute Neuts (auto) 9.8 10^3/uL (1.4-6.5) H 09/29/23 18:44
PT 11.4 Sec (11.4-14.6) 09/29/23 18:44
INR 0.85 09/29/23 18:44
APTT 23.5 Sec (23.4-35.0) 09/30/23 00:58
Sodium 136 mmol/L (135-145) 09/30/23 07:46
Potassium 3.7 mmol/L (3.5-5.1) 09/30/23 07:46
Chloride 98 mmol/L (98-107) 09/30/23 07:46
Carbon Dioxide 31 mmol/L (22-30) H 09/30/23 07:46
BUN 16 mg/dl (9-20) 09/30/23 07:46
Creatinine 0.7 mg/dL (0.7-1.3) 09/30/23 07:46
Calcium 8.5 mg/dl (8.4-10.2) D 09/30/23 07:46
Total Bilirubin 0.7 mg/dl (0.2-1.3) 09/29/23 18:44
AST 63 U/L (17-59) H 09/29/23 18:44
ALT 33 U/L (0-50) 09/29/23 18:44
Alkaline Phosphatase 63 U/L (38-126) 09/29/23 18:44
Diagnostic Image Results:
Prior GI Procedures:
EGD: none
Colonoscopy: none
Assessment / Plan
-
33-year-old male with history of alcohol abuse with recent relapse admitted with nausea/vomiting/coffee-ground emesis, hematemesis/dark stool for 2 to 3 days. Patient has been drinking heavily-1 bottle of vodka daily. Blood alcohol level on
admission 296. Currently on alcohol withdrawal protocol. Prior history of alcohol withdrawal with seizure
--Coffee-ground emesis/hematemesis/dark stool-likely upper GI bleeding. Possible differential alcoholic gastritis versus peptic ulcer disease versus esophagitis versus Shelley-Gautam tear etc.
Currently resolved since admission
-- Alcohol abuse
-- Alcohol withdrawal
plan
No further episodes of vomiting or dark stool since admission. Hemoglobin today was 12.3 (down from 16 on admission) but BUN is normal. Liver test mildly elevated AST. Otherwise normal platelets/INR/bili/albumin (not suggestive of liver
cirrhosis).
Will start him on full liquid diet today
Continue monitor H&H
Continue Protonix bid
US abdomen
ETOH withdrawal protocol as per medical team
Will hold off on EGD at this point with active alcohol withdrawal symptoms and no overt GI bleeding currently. . If bleeding recurs will consider EGD during this admission
Advised on alcohol abstinence. Patient would like to go back on rehab
Total Time Spent with Patient (in minutes): 55
-
-
Thank you for consultation and allowing me to participate in the patient's care. Please call the spinning bath person GI physician during the after hours with any questions or concerns.
[2023-09-30 12:39] LABS: Fentanyl, Urine Negative (Negative)
--- NOTE | 2023-09-30 14:30 | CM ---
Addendum entered by Kimi Montanez RN 09/30/23 14:50:
CM spoke with AD Howard at [facility]. She requested clinicals be faxed to ([phone]), faxed. ERIKA discussed with that the patient was interested with inpatient rehab.
Original Note:
Reviewed the chart notes and spoke with the patient and patient's uncle Vinicio at the bedside. The patient resides with his parents in a two story home with two steps to enter. No DME/VN/SNF in the past. Confirmed pharmacy as [facility].
[place]. The patient is interested in inpatient substance treatment. Per uncle, AD was into see the patient last evening. CM to follow-up with Ad. CM continues to be available to patient/family and is monitoring medical plan for needs
at discharge.
Plan: Discharge hopefully to inpatient rehab if a bed is found.
[2023-09-30] MEDS: FLUSH (NSS) 3 FLUSH IV (20:17)
--- NOTE | 2023-09-30 22:08 | PTCARENOTE ---
The patient ate a turkey sandwich from a box lunch at around 1945. He claimed he asked for it and received it believing it was OK per the doctor. Upon discovery by this RN, he was promptly stopped and educated and corrected that his doctor only
ordered a Full Liquid Diet. At this time he claims to have no symptoms from the sandwich and saiys he feels better. He currently has no nausea. Advised the covering provider. The patient verbalized an understanding to alert this RN if he has any
bloody emesis or bloody stool.
[2023-10-01] MEDS: ATIVAN 1 MG PO (00:03)
[2023-10-01] MEDS: NSS 1000 IV (01:52)
[2023-10-01 07:31] VITALS: BP 119/76
[2023-10-01 07:49] LABS: Hematocrit 32.7 % (39.0-52.0); Hemoglobin 11.3 g/dL (13.0-18.0); Mean Corp Hgb Conc. 34.6 g/dL (33.0-37.0); Mean Corpuscular Hgb 30.6 pg (27.0-31.0); Mean Corpuscular Volume 88.6 fL (80.0-94.0); Mean Platelet Volume 10.8 fL (7.4-10.4); Platelet Count 198 10^3/uL (130-400); Red Blood Cell Count 3.69 10^6/uL (4.70-6.10); Red Cell Dist. Width 13.1 % (11.5-14.5); White Blood Cell Count 5.1 10^3/uL (4.8-10.8)
[2023-10-01 08:39] LABS: Blood Urea Nitrogen 11 mg/dl (9-20); Calcium 8.5 mg/dl (8.4-10.2); Carbon Dioxide 25 mmol/L (22-30); Chloride 102 mmol/L (98-107); Estimated Creatinine Clearance > 125 ml/min; Glucose 81 mg/dl (70-99); Potassium 3.7 mmol/L (3.5-5.1); Sodium 135 mmol/L (135-145); eGFR > 60.00
[2023-10-01] MEDS: FOLVITE 1 MG PO (09:45)
[2023-10-01] MEDS: BUSPAR 7.5 MG PO (09:45)
[2023-10-01] MEDS: LEXAPRO 10 MG PO (09:45)
[2023-10-01] MEDS: LUMINAL 64.7999999999999972 MG PO (09:46)
[2023-10-01] MEDS: NSS (PRESERVATIVE FREE) 10 ML IV (09:46)
[2023-10-01] MEDS: PROTONIX IV 40 MG IV (09:46)
[2023-10-01] MEDS: THIAMINE INJECTION 200 MG IV (09:47)
--- NOTE | 2023-10-01 11:24 | W.PN.HOSP.TC ---
Today's Communication/Plan
-
see note
Assessment / Plan
Assessment / Plan
1. GI bleed - hematochezia and Coffe brown emesis
Acute blood loss anemia
-h/o of alcohol use but denies cirrhosis/varices/PUD to me. Did state of having prior hematemesis to admitting attending.
-Hemoglobin stabilized around 11.5.
-GI evaluation reviewed and likely Shelley-Gautam tear. No indication of EGD
-No further episode of bleed overnight
-Twice daily PPI ordered for any alcohol induced gastritis
2. Alcohol use disorder
Alcohol withdrawal
- patient was sober for 100 day and started drinking again
- last drink on 09/28 4 PM
- Blood alcohol 296 at admit and 89 today
- Patient reported previous h/o of sev withdrawal with seizures in past
- MSAS score reviewed and highest 6, required 2x ativan dose
- Finish Phencarb protocol post discharge. -Patient advised not to drink while on phenobarbital or stop taking it if have urge to drink.
- Patient offered to stay 1 more night and possibly placed in alcohol rehab if place can be found, pt prefers to go home.
3. Leukocytosis w/o fever
- possible reactive in nature
4. Anxiety/depression
-buspirone and citalopram continued
5. Transaminitis
- minimal AST elevation, from alc use
6. Hypercalcemia
- at upper normal cutoff from dehydration likely
- f/u labs today post IVF
DVT Prophylaxis -scd
CODE status -full code
More than 30 minutes spent in discharge including
Final examination of the patient
Summarizing hospital stay
Instructions for continuing care to all relevant caregivers
Preparation of discharge records, prescriptions, and referral forms
Total time spent (in minutes): 38 mins
Anticipated Discharge: Today
Subjective/Interval History
-
Date of Service: October 01, 2023
Denies of any other episode of nausea vomiting or bleeding overnight
Low MSAS score
Objective Data
-
Labs:
Laboratory Results
10/01/23
06:47
WBC 5.1
Hgb 11.3 L
Hct 32.7 L
Plt Count 198
Sodium 135
Potassium 3.7
Chloride 102
Carbon Dioxide 25
BUN 11
Creatinine 0.7
Glucose 81
Calcium 8.5
Vital Signs:
Vital Signs
Temp Pulse Resp BP Pulse Ox
97.4 F 85 20 119/76 100
10/01/23 07:31 10/01/23 07:31 10/01/23 07:31 10/01/23 07:31 10/01/23 07:31
I&O
09/30/23 10/01/23 10/02/23
06:59 06:59 06:59
Intake Total 520 / 520 1839
Output Total 250 / 250
Balance 270 / 270 1839
Review of Systems
-
Respiratory: Reports No Symptoms
Cardiac: Reports No Symptoms
Abdomen/GI: Reports No Symptoms
Physical Exam
-
General: Comfortable
HEENT: Negative Oxygen
Neuro: Awake, Alert, Oriented and No Motor Deficits
Psych: Anxious (Minimal)
[2023-10-01 11:30] VITALS: BP 147/98
--- NOTE | 2023-10-01 11:31 | W.PN.GI.CBS2 ---
Today's Communication / Plan
-
Okay to advance diet
Assessment / Plan
-
33-year-old male with history of alcohol abuse with recent relapse admitted with nausea/vomiting/coffee-ground emesis, hematemesis/dark stool for 2 to 3 days. Patient has been drinking heavily-1 bottle of vodka daily. Blood alcohol level on
admission 296. Currently on alcohol withdrawal protocol. Prior history of alcohol withdrawal with seizure
--Coffee-ground emesis/hematemesis/dark stool-likely upper GI bleeding. Possible differential alcoholic gastritis versus peptic ulcer disease versus esophagitis versus Shelley-Gautam tear etc. resolved since admission
-- Alcohol abuse
-- Alcohol withdrawal
plan
No further episodes of vomiting or dark stool since admission. Hemoglobin today was down but BUN is normal. Liver test mildly elevated AST. Otherwise normal platelets/INR/bili/albumin (not suggestive of liver cirrhosis).
Okay to advance diet
Continue monitor H&H
Continue Protonix bid
US abdomen pending
ETOH withdrawal protocol as per medical team
Will hold off on EGD at this point with active alcohol withdrawal symptoms and no overt GI bleeding currently. . If bleeding recurs will consider EGD during this admission
Advised on alcohol abstinence. Patient would like to go back on rehab
GI follow-up as outpatient
Total Time Spent with Patient (in minutes): 35
Subjective
Subjective
Date of Service: October 01, 2023
Denies further bleeding/abdominal pain/vomiting. Tolerating liquid diet
Objective
Data Reviewed
Laboratory Data:
Laboratory Results
10/01/23 06:47
10/01/23 06:47
Laboratory Results
PT 11.4 Sec (11.4-14.6) 09/29/23 18:44
INR 0.85 09/29/23 18:44
APTT 23.5 Sec (23.4-35.0) 09/30/23 00:58
Phosphorus 4.3 mg/dl (2.5-4.5) 09/29/23 18:44
Magnesium 1.6 mg/dl (1.6-2.3) 09/30/23 00:58
Total Bilirubin 0.7 mg/dl (0.2-1.3) 09/29/23 18:44
AST 63 U/L (17-59) H 09/29/23 18:44
ALT 33 U/L (0-50) 09/29/23 18:44
Alkaline Phosphatase 63 U/L (38-126) 09/29/23 18:44
Vital Signs and I&O:
Vital Signs
Temp Pulse Resp BP Pulse Ox
97.4 F 85 20 119/76 100
10/01/23 07:31 10/01/23 07:31 10/01/23 07:31 10/01/23 07:31 10/01/23 07:31
I&O
09/30/23 10/01/23 10/02/23
06:59 06:59 06:59
Intake Total 520 / 520 1839
Output Total 250 / 250
Balance 270 / 270 1839
Physical Exam
Physical Exam
GI: Soft, Non Distended and Non Tender
--- NOTE | 2023-10-01 11:50 | CM ---
Addendum entered by Kimi Montanez RN 10/01/23 13:59:
Patient left without speaking to [facility] Per patient, uncle provided transportation.
Addendum entered by Kimi Montanez RN 10/01/23 13:57:
Clinicals faxed to [place] ([phone]) per Matt from [facility] request. CM spoke with Mindy from [place]. They have no beds today, but will review for tomorrow.
Original Note:
CM spoke with Michael from [facility] He will be here shortly to speak with the patient. Patient in agreement with waiting to speak with him prior to leaving the hospital. Per patient, his uncle will provide transportation home or to a facility if one
if able to be found. CM continues to be available to patient/family and is monitoring medical plan for needs at discharge.
Plan: Discharge to inpatient facility for substance abuse if one is found or home with no needs.
--- NOTE | 2023-10-01 12:51 | W.DCSUMMARY ---
Discharge Summary
Discharge Data
Date of Admission: 09/29/23
Date of Discharge: 10/01/23
-
Pending Results: No
Hospital Course
Discharging Physician : Dr Santo Pham
Disposition : To home
Primary care physician : None
Principal Discharge diagnosis :
Gastrointestinal bleed from Shelley-Gautam tear
Acute blood loss anemia
Alcohol withdrawal
Chronic Discharge diagnosis :
Alcohol use disorder
Depression/anxiety
Hospital Course :
Patient is a 33-year-old male with above-mentioned past medical history came to ER with new onset of nausea vomiting coffee-ground emesis and melena. Symptoms were acute onset in nature within 24 hours. Patient have history of alcohol use disorder
and has been sober for some time although patient had relapse and has been drinking again. In ER lab worsening showing patient not having significant anemia although with history of alcohol use concern for new GI bleed and patient was admitted for
further monitoring. Patient blood alcohol level of 296 at admission. Patient was started on alcohol withdrawal protocol following day. Required to initiated on phenobarbital taper as well. No further episode of nausea and vomiting occurred
during hospitalization. Patient was evaluated by hat finishing materials preparer and felt to having a small Shelley-Gautam tear explaining patient's symptoms. Patient hemoglobin did settle to low number of 12 excluding any requirement of blood transfusion.
Post medical stabilization patient was discharged home with course of oral Protonix therapy.
Of note patient working with [facility] for finding suitable alcohol rehabilitation program.
Important imaging findings :
None
Procedure findings :
None
Discharge Plan
-
Patient Disposition: Home (Routine Discharge)
Discharge Diagnosis/Procedures: Upper GI bleed, Shelley Gautam tear, Alcohol withdrawal
Condition: Fair
Diet: Regular
Activity: As tolerated
Driving Restrictions: No driving for 24 hours
Referrals:
UNKNOWN - PT DOES,NOT KNOW [Family Provider] -
Prescriptions:
New
phenobarbital 32.4 mg Tablet
See Rx Instructions .ROUTE .COMPLEX Qty: 10 0RF
Rx Instructions:
Take 2 Tablet 3 Times today THEN
Take 1 Tablet 3 Times a day for 2 days.
pantoprazole [Protonix] 40 mg tablet,delayed release (DR/EC)
40 mg PO BID Qty: 60 0RF
Continued
escitalopram oxalate [Lexapro] 10 mg Tablet
10 mg PO DAILY
buspirone 7.5 mg tablet
7.5 mg PO DAILY
Discharge Orders:
Discharge Patient (As Directed); Ordered 10/01/23
Ordered By: Santo Pham
--- NOTE | 2023-10-02 12:42 | CM ---
CM spoke with Matt with [facility]. Patient was accepted at [facility] and is now in treatment.
== END 2023-10-01 13:15 | disposition home or self-care (01) | DRG 896 ==
LOC: 2 NORTH 23:51
PROVIDERS: Registered Nurse; ADMITTING PHYSICIAN Hospitalist; ATTENDING PHYSICIAN Hospitalist; CONSULT PHYSICIAN Internal Medicine Gastroenterology; EMERGENCY PHYSICIAN Emergency Medicine
DX: F10.239 Alcohol dependence with withdrawal, unspecified (principal); K22.6 Gastro-esophageal laceration-hemorrhage syndrome; K29.21 Alcoholic gastritis with bleeding; D62 Acute posthemorrhagic anemia; R25.1 Tremor, unspecified; F32.A Depression, unspecified; F41.9 Anxiety disorder, unspecified; F10.229 Alcohol dependence with intoxication, unspecified; R01.1 Cardiac murmur, unspecified; F12.90 Cannabis use, unspecified, uncomplicated; D72.829 Elevated white blood cell count, unspecified; F17.200 Nicotine dependence, unspecified, uncomplicated; R74.01 Elevation of levels of liver transaminase levels; Y90.8 Blood alcohol level of 240 mg/100 ml or more; E83.52 Hypercalcemia
CPT/HCPCS: 80048; 80053; 80306; 80307; 81003; 82010; 82077; 82977; 83735; 84100; 85025; 85027; 85610; 85730; 86900; 86901; 96365; 96375; 99284